=== PATIENT | male | born 1960 | race Caucasian/White ===

== ENCOUNTER → 2018-10-23 | Outpatient (CLI) | payer BC | LOC: HYPER 10-17 08:43 | DX: E11.621 Type 2 diabetes mellitus with foot ulcer (principal); L97.521 Non-pressure chronic ulcer of other part of left foot limited to breakdown of skin; L84 Corns and callosities; E11.40 Type 2 diabetes mellitus with diabetic neuropathy, unspecified; M21.6X2 Other acquired deformities of left foot; M66.372 Spontaneous rupture of flexor tendons, left ankle and foot; M79.672 Pain in left foot; G89.29 Other chronic pain; R60.0 Localized edema; F32.9 Major depressive disorder, single episode, unspecified; F41.9 Anxiety disorder, unspecified; Z90.49 Acquired absence of other specified parts of digestive tract; Z79.84 Long term (current) use of oral hypoglycemic drugs; Z87.891 Personal history of nicotine dependence ==

== ENCOUNTER → 2018-11-06 | Outpatient (CLI) | payer BC | LOC: HYPER 06:58 | DX: E11.621 Type 2 diabetes mellitus with foot ulcer (principal); L97.521 Non-pressure chronic ulcer of other part of left foot limited to breakdown of skin; E11.40 Type 2 diabetes mellitus with diabetic neuropathy, unspecified; L84 Corns and callosities; M21.6X2 Other acquired deformities of left foot; M66.372 Spontaneous rupture of flexor tendons, left ankle and foot; M79.672 Pain in left foot; G89.29 Other chronic pain; R60.0 Localized edema; F41.9 Anxiety disorder, unspecified; F32.9 Major depressive disorder, single episode, unspecified; Z79.84 Long term (current) use of oral hypoglycemic drugs; Z87.891 Personal history of nicotine dependence ==